=== PATIENT | female | born 1950 | race Two or more races ===

== ENCOUNTER 2021-02-19 07:34 | Outpatient (CLI) | payer OTHER ==
[~2021-02-19 07:34] MED LIST: METHOCARBAMOL500 MG PO; VOLTAREN100 GM TOP
== END 2021-02-19 07:43 | disposition home or self-care (01) ==
LOC: SONOGRAMA 07:34
PROVIDERS: ATTEND Internal Medicine Endocrinology, Diabetes & Metabolism
DX: E04.8 Other specified nontoxic goiter (principal)

== ENCOUNTER 2021-03-09 07:43 | Outpatient (CLI) | payer OTHER | END 2021-03-09 07:54 | disposition home or self-care (01) | LOC: SONOGRAMA 07:43 → MAMO-SONO 09:15 | PROVIDERS: ATTEND Obstetrics & Gynecology Gynecology | DX: N20.0 Calculus of kidney (principal); R31.21 Asymptomatic microscopic hematuria; R31.29 Other microscopic hematuria; R93.9 Diagnostic imaging inconclusive due to excess body fat of patient; R93.429 Abnormal radiologic findings on diagnostic imaging of unspecified kidney; N83.8 Other noninflammatory disorders of ovary, fallopian tube and broad ligament; N83.292 Other ovarian cyst, left side; N83.291 Other ovarian cyst, right side; N60.12 Diffuse cystic mastopathy of left breast; N60.11 Diffuse cystic mastopathy of right breast; Z80.0 Family history of malignant neoplasm of digestive organs; M81.0 Age-related osteoporosis without current pathological fracture; N95.2 Postmenopausal atrophic vaginitis ==